=== PATIENT | male | born 1945 | race Caucasian/White ===

== ENCOUNTER 2022-03-15 20:03 | Emergency (ER) | payer MEDICARE, OTHER ==
[2022-03-15] MEDS ORDERED: HYDR28.341 RC (20:52)
--- NOTE | 2022-03-15 20:52 | ED GI ---
General Chief Complaint: Abdominal/GI Problems Stated Complaint: CONSTIPATIOM Nursing Triage Note: Pt complaining of constipation. Source of Information: Patient History of Present Illness Date Seen by Provider: Mar 15, 2022 Time Seen by Provider: 20:09 Initial Comments 76-year-old male presenting with complaints of constipation. He states that he was straining to have bowel movement and had a large hard ball of stool that passed. When this happened she had pain and burning in his anus and noticed bright red blood. He denies having abdominal pain. He did take a dose of milk of magnesia earlier as that usually helps with his constipation. He is concerned that he might develop an infection of his anus or have a laceration because of his bleeding. Timing/Duration: 1-3 Hours Severity/Quality: Moderate, Burning, Sharp Location: Other (Anus) Activities at Onset: Other (Defecating) Modifying Factors: Worsens With Defecating Associated Symptoms: No Back Pain, No Chest Pain, No Diaphoresis, No Fever/Chills, No Fatigue, No Headache, No Heartburn, No Nausea/Vomiting, No Shortness of Air, No Swelling/Mass in Abdomen, No Syncope, No Weakness Allergies and Home Medications Allergies Coded Allergies: No Known Drug Allergies (Unverified , 03/16/22) Patient Home Medication List Home Medication List Reviewed: Yes Hydrocortisone (Proctosol-Hc) 2.5 % Cream.appl, 0.5 GM RC BID PRN for anal abrasion Prescribed by: JULIA URIOSTEGUI on 03/15/222051 Review of Systems Review of Systems Constitutional: No chills, No fever EENTM: No Symptoms Reported Respiratory: No Symptoms Reported Cardiovascular: No Symptoms Reported Gastrointestinal: See HPI Genitourinary: No Symptoms Reported Musculoskeletal: no symptoms reported Skin: no symptoms reported Psychiatric/Neurological: Anxiety Past Itsxydy-Ehkggi-Qiggse Hx Patient Social History Tobacco Use?: No Use of E-Cig and/or Vaping dev: No Substance use?: No Alcohol Use?: No Pt feels they are or have been: No Physical Exam Vital Signs Vital Signs - First Documented 03/15/22 20:08 Temp 36.0 Pulse 93 Resp 16 B/P (MAP) 138/88 (105) Pulse Ox 96 O2 Delivery Room Air Capillary Refill : Less Than 3 Seconds Height/Weight/BMI Height: '" Weight: lbs. oz. kg; BMI Method: General Appearance: WD/WN, other (anxious) HEENT: PERRL/EOMI Neck: non-tender, full range of motion, supple, normal inspection Respiratory: chest non-tender, lungs clear, normal breath sounds Cardiovascular: normal peripheral pulses, regular rate, rhythm Gastrointestinal: normal bowel sounds, non tender, soft, no pulsatile mass Rectal: tenderness, other (normal colored stool with blood streaked on the outside. superficial abrasions to anus) Extremities: normal range of motion, non-tender, normal capillary refill Neurologic/Psychiatric: alert, oriented x 3 Skin: warm/dry Progress/Results/Core Measures Results/Orders Vital Signs/I&O 03/15/22 03/15/22 20:08 20:57 Temp 36.0 36.0 Pulse 93 93 Resp 16 16 B/P (MAP) 138/88 (105) 138/88 Pulse Ox 96 96 O2 Delivery Room Air Room Air Blood Pressure Mean: 105 Progress Progress Note : Progress Note Reassured patient that he had some superficial abrasions of the anal opening but there was no laceration. He had no active bleeding currently. The stool itself was normal colored. There was a ball of stool I tried to disimpact digitally but it was soft and I was not able to remove any stool. However after I completed his digital rectal exam he had passed liquid stool and then had a solid chunk of feces the past as well. He reported burning to his anal opening with passing this liquid stool. This was likely due more to acid in the stool f rom taking milk of magnesia laxative causing him to defecate. Counseled on symptomatic treatment for anal irritation and abrasion. Encouraged to increase fiber in his diet. Counseled to follow-up through the clinic for continued concerns. Departure Impression Primary Impression: Abrasion of anus, initial encounter Additional Impressions: Constipation Qualified Codes: K59.00 - Constipation, unspecified Rectal bleed Disposition: HOME, SELF-CARE Condition: Stable Departure-Patient Inst. Decision time for Depature: 20:48 Referrals: NO,LOCAL PHYSICIAN (PCP) Primary Care Physician [facility] Patient Instructions: Constipation, Adult ED, Abrasions ED Add. Discharge Instructions: Use Preparation H or Over the counter hemorrhoid medicine to help with anal abr asion and rectal bleeding. If not improving in next 24 to 48 hours check back with clinic. [facility] clinic can be reached at [phone] if you do not have a primary care provider. All discharge instructions reviewed with patient and/or family. Voiced unde rstanding. Scripts Hydrocortisone (Proctosol-Hc) 2.5 % Cream.appl 0.5 GM RC BID PRN for anal abrasion for 5 Days, #30 GM 0 Refills Prov: JULIA URIOSTEGUI MD 03/15/22 JULIA URIOSTEGUI MD Mar 15, 2022 20:52
[2022-03-15 20:57] VITALS: BP 138/88
== END 2022-03-15 20:58 | disposition home or self-care (01) ==
LOC: ER FS 20:07
DX: S30.817A Abrasion of anus, initial encounter (principal); K59.00 Constipation, unspecified; K62.5 Hemorrhage of anus and rectum; Z28.310 Unvaccinated for COVID-19; X58.XXXA Exposure to other specified factors, initial encounter
CPT/HCPCS: 99281